=== PATIENT | female | born 1975 | race Caucasian/White ===

== ENCOUNTER 2024-10-06 21:00 | Observation (INO) ==
[2024-10-06] MEDS: Ondansetron 4 mg VIAL 2 MG/ML 2 ml VIAL IV ONE (21:36)
[2024-10-06] MEDS: Morphine 4 MG/ML VIAL (1 ml) IV ONE (21:36)
[2024-10-06 22:03] LABS: ABS Basophils 0.1 10^3/uL (0.0-0.1); ABS Eosinophils 0.3 10^3/uL (0.0-0.5); ABS Lymphocytes 1.4 10^3/uL (1.0-4.8); ABS Monocytes 0.5 10^3/uL (0.0-0.9); ABS Neutrophils 4.7 10^3/uL (1.5-7.6); ABS Nucleated RBC 0.02 10^3/ul; Eosinophil % 4.7 %; Hematocrit 40.4 % (35-45); Hemoglobin 13.8 g/dL (11.5-14.3); Mean Corpuscular Hemoglobin 30.7 pg (27-33); Mean Corpuscular Hgb Conc 34.1 g/dL (31-36); Mean Platelet Volume 8.4 fL (7.5-11.2); Nucleated Red Blood Cells % 0.2 %/100WBC (0.0-0.8); Platelet Count 306 10^3/uL (150-450); Red Blood Count 4.49 10^6/uL (3.63-4.92); Red Cell Distribution Width 14.1 % (12-17)
[2024-10-06 22:38] LABS: Albumin 4.2 g/dL (3.2-5.2); Albumin/Globulin Ratio 2.1 (1-3); Calcium 9.4 mg/dL (8.6-10.3); Creatinine, Serum 1.07 mg/dL (0.51-0.95); Potassium 3.8 mmol/L (3.5-5.0); Total Bilirubin 0.3 mg/dL (0.2-1.0); Total Protein 6.2 g/dL (6.4-8.9); eGFR CKD-EPI 62.9 (>60)
[2024-10-07] MEDS: Iohexol 350 (CONTRAST) 500 ML MDV IV ONE (00:20)
[2024-10-07] MEDS: Morphine 4 MG/ML VIAL (1 ml) IV ONE (01:04)
[2024-10-07] MEDS: Lactated Ringers 1000 ml BAG 1,000 ML IV SCH (04:43)
[2024-10-07] MEDS: Enoxaparin 40 MG/0.4 ML SYR SUBCUT SCH (04:47)
[2024-10-07] MEDS: Acetaminophen IV 1 GM/100ML 1,000 MG/100 ML BAG IV PRN (10:36)
[2024-10-07] MEDS: Diatrizoate Meg/Sod(CONTRAST) 30 ML ORAL.SOLN PO ONE (12:10)
[2024-10-07 16:42] LABS: Urine Appearance Clear; Urine Bacteria Absent /HPF (Absent); Urine Bilirubin Negative (Negative); Urine Blood Negative (Negative); Urine Color Yellow; Urine Glucose Negative (Negative); Urine Ketones Negative (Negative); Urine Nitrite Negative (Negative); Urine Protein 1+ (>=30 mg/dL) (Negative); Urine Red Blood Cell 2+(6-10/hpf) /HPF (0-Trace); Urine Specific Gravity >1.050 (1.002-1.030); Urine Squamous Epithelial Cell Present /HPF (Absent); Urine Urobilinogen Negative (Negative); Urine White Blood Cell 3+(>20/hpf) /HPF (0-Trace)
[2024-10-07 17:53] LABS: Calcium 9.2 mg/dL (8.6-10.3); Creatinine, Serum 0.99 mg/dL (0.51-0.95); Potassium 4.2 mmol/L (3.5-5.0)
[2024-10-07] MEDS: Morphine 2 MG/ML SYRINGE IV PRN (20:22)
[2024-10-08 06:01] LABS: ABS Eosinophils 0.7 10^3/uL (0.0-0.5); ABS Monocytes 0.3 10^3/uL (0.0-0.9); ABS Neutrophils 1.4 10^3/uL (1.5-7.6); Eosinophil % 15.1 %; Hematocrit 38.9 % (35-45); Hemoglobin 12.9 g/dL (11.5-14.3); Lymphocyte % 45.2 %; Mean Corpuscular Hemoglobin 29.9 pg (27-33); Mean Corpuscular Hgb Conc 33.2 g/dL (31-36); Mean Corpuscular Volume 90.2 fL (80-97); Mean Platelet Volume 8.7 fL (7.5-11.2); Platelet Count 249 10^3/uL (150-450); Red Blood Count 4.31 10^6/uL (3.63-4.92); Red Cell Distribution Width 14.5 % (12-17); White Blood Count 4.4 10^3/uL (3.8-11.8)
[2024-10-08 06:31] LABS: Albumin 3.4 g/dL (3.2-5.2); Calcium 8.5 mg/dL (8.6-10.3); Creatinine, Serum 0.77 mg/dL (0.51-0.95); Globulin 1.7 g/dL (2-4); Magnesium 1.8 mg/dL (1.9-2.7); Phosphorus 3.6 mg/dL (2.5-5.0); Total Bilirubin 0.5 mg/dL (0.2-1.0); Total Protein 5.1 g/dL (6.4-8.9); eGFR CKD-EPI 93.3 (>60)
[2024-10-08] MEDS: Magnesium Sulfate 2 gm BAG 2 GM/50 ML BAG IVPB ONE (08:40)
[2024-10-08 17:38] VITALS: BP 134/99
== END 2024-10-08 18:11 | disposition home or self-care (01) ==
LOC: EDHOLD 21:00 → ED 21:00 → SUATTDRO 10-07 02:36 → MEDTELE 10-07 04:05
PROVIDERS: ADMIT Internal Medicine; ATTEND Student in an Organized Health Care Education/Training Program